=== PATIENT | female | born 1990 | race Caucasian/White ===

== ENCOUNTER 2020-09-04 21:49 | Emergency (ER) | payer OTHER ==
[2020-09-04] MEDS ORDERED: MEDROL4 MG PO (23:49)
[2020-09-04] MEDS ORDERED: PEPCID40 MG PO (23:49)
== END 2020-09-04 23:58 | disposition home or self-care (01) ==
LOC: ER1 21:49
DX: L50.9 Urticaria, unspecified (principal); Z88.0 Allergy status to penicillin; Z86.73 Personal history of transient ischemic attack (TIA), and cerebral infarction without residual deficits
CPT/HCPCS: 96374; 99282; J1100

== ENCOUNTER 2021-01-04 19:56 | Emergency (ER) | payer OTHER ==
[~2021-01-04 19:56] MED LIST: MEDROL4 MG PO; PEPCID40 MG PO
[2021-01-04 21:57] LABS: RED BLOOD COUNT 3.78 M/UL (4.00-5.10); WHITE BLOOD COUNT 8.6 K/UL (4.5-11.0)
[2021-01-04 22:20] LABS: BUN/CREATININE RATIO 17 (0-10)
== END 2021-01-05 00:40 | disposition home or self-care (01) ==
LOC: ER1 19:56
PROVIDERS: Physician Assistant
DX: R55 Syncope and collapse (principal); Z98.51 Tubal ligation status; Z88.0 Allergy status to penicillin
CPT/HCPCS: 80053; 81001; 84703; 85025; 87086; 93005; 96374; 99284; J2405; J7030; Q9967

== ENCOUNTER → 2021-06-09 | Outpatient (CLI) | payer OTHER | LOC: LAB 15:59 | DX: O09.00 Supervision of pregnancy with history of infertility, unspecified trimester (principal) | CPT/HCPCS: 36415; 84702 ==

== ENCOUNTER 2021-06-11 17:25 | Emergency (ER) | payer OTHER | END 2021-06-11 18:43 | disposition home or self-care (01) | LOC: ER1 17:25 | DX: Z01.419 Encounter for gynecological examination (general) (routine) without abnormal findings (principal); Z3A.00 Weeks of gestation of pregnancy not specified | CPT/HCPCS: 81001; 99284 ==